=== PATIENT | female | born 1965 | race Caucasian/White ===

== ENCOUNTER 2017-03-11 07:46 | Day surgery (SDC) | payer OTHER ==
[~2017-03-11] VITALS: Ht 161.3 cm; Wt 55.3 kg
[~2017-03-11 07:46] MED LIST: ALEV220T26 PO; LATA5OPD OU
[2017-03-11] MEDS ORDERED: LR 500 ML IV ONE (08:00)
[2017-03-11] MEDS ORDERED: CIPRODEX OTIC SUSP 7.5ML As Ordered ONE (09:07)
[2017-03-11] MEDS ORDERED: EPINEPHrine 1MG/ML INJ 30ML MD-VIAL As Ordered ONE (09:07)
[2017-03-11] MEDS ORDERED: LIDOCAINE W/EPINEPHRINE 1% 20ML VIAL As Ordered ONE (09:07)
[2017-03-11] MEDS ORDERED: MIDAZOLAM INJ 2 MG/2 ML VIAL (J2250) As Ordered ONE (09:51)
[2017-03-11] MEDS ORDERED: PROPOFOL 200 MG/20 ML VIAL As Ordered ONE ×2 (09:51→09:53)
[2017-03-11] MEDS ORDERED: fentaNYL 100 MCG/2 ML INJECTION (J3010) As Ordered ONE ×2 (09:51→09:53)
[2017-03-11] MEDS ORDERED: ROCURONIUM BROMIDE 50 MG/5 ML VIAL/SYRINGE As Ordered ONE (09:53)
[2017-03-11] MEDS ORDERED: LIDOCAINE 2% INJ 100 MG/5 ML SDV (FOR ANES.) As Ordered ONE (09:53)
[2017-03-11] MEDS ORDERED: METOCLOPRAMIDE INJ 10MG/2ML VIAL (J2765) As Ordered ONE (09:53)
[2017-03-11] MEDS ORDERED: ONDANSETRON 4MG/2ML VIAL (J2405) As Ordered ONE (09:53)
[2017-03-11] MEDS ORDERED: SUCCINYLCHOLINE 100 MG/5 ML SYRINGE (J0330) As Ordered ONE (09:53)
[2017-03-11] MEDS ORDERED: dexameTHASONE 4 MG/ML 1ML VIAL (J1100) As Ordered ONE (10:01)
[2017-03-11] MEDS ORDERED: ACETAMINOPH W/CODEINE #3 TAB UD PO PRN (11:00)
[2017-03-11] MEDS ORDERED: LR 1,000 ML IV SCH ×2 (11:00)
[2017-03-11] MEDS ORDERED: fentaNYL 100 MCG/2 ML INJECTION (J3010) IV PRN (11:00)
[2017-03-11] MEDS ORDERED: ONDANSETRON 4MG/2ML VIAL (J2405) IV PRN (11:00)
--- NOTE | 2017-03-11 11:48 | RO ---
DATE OF PROCEDURE: 03/11/2017 PREPROCEDURE DIAGNOSIS: Chronic left tympanic membrane perforation. POSTPROCEDURE DIAGNOSIS: Chronic left tympanic membrane perforation, possible cholesteatoma. OPERATIVE PROCEDURE: Exploration of left ear. SURGEON: Michael Bloom MD HAND STONER: ANESTHESIA: General. DESCRIPTION OF PROCEDURE: Under general anesthesia, the patient is prepped and draped in the usual manner. The area was infiltrated with Lidocaine and epinephrine. I cleaned the ear with Betadine and saline. I made a posterior tympanotomy incision and radial incision. Postauricular incision was made. I then joined the posterior and anterior dissection. Once I did this, I examined the ear. It was apparent the patient had a large posterosuperior retraction pocket and probable cholesteatoma. Because I had not discussed mastoidectomy with the patient, I elected to terminate the procedure. The patient tolerated the procedure well. I put some Oxipor dressing and then closed the wound with #3-0 chromic and #3-0 Prolene. The patient will go to the recovery room and then we will discuss options with her afterwards.
[2017-03-11 12:40] VITALS: BP 129/65
== END 2017-03-11 13:00 | disposition home or self-care (01) ==
LOC: M SDC 07:46
PROVIDERS: ATTEND Otolaryngology
DX: H72.92 Unspecified perforation of tympanic membrane, left ear (principal); H40.9 Unspecified glaucoma; R23.3 Spontaneous ecchymoses; R56.9 Unspecified convulsions; Z88.8 Allergy status to other drugs, medicaments and biological substances; Z79.899 Other long term (current) drug therapy; Z90.710 Acquired absence of both cervix and uterus; Z98.51 Tubal ligation status; Z72.0 Tobacco use

== ENCOUNTER → 2017-04-13 | Outpatient (CLI) | payer OTHER ==
--- NOTE | 2017-04-13 21:11 | ECGEPIP ---
Stationary ECG Study [facility] Test Date: 2017-04-13 Pat Name: ALVARADO SIERRA Department: Room: - Gender: F Director Of Video Analytics: [facility] : 1965 Requested By: Timothy Gerard Order Number: [id number] Reading MD: Keshawn Mckeon Measurements Intervals Raymond Rate: 81 P: 74 GA: 148 QRS: 47 QRSD: 77 T: 46 QT: 355 QTc: 414 Interpretive Statements Normal sinus rhythm Left atrial enlargement Delayed anterior R wave progression Nonspecific T wave abnormality Comparison tracing not on file Electronically Signed On 04-13-2017 21:11:31 EST by Keshawn Mckeon
== END ==
LOC: M EKG 09:28
PROVIDERS: ATTEND Anesthesiology
DX: Z01.818 Encounter for other preprocedural examination (principal); H40.9 Unspecified glaucoma; R94.31 Abnormal electrocardiogram [ECG] [EKG]

== ENCOUNTER 2017-04-20 05:55 | Day surgery (SDC) | payer OTHER ==
[~2017-04-20] VITALS: Ht 160 cm; Wt 55.8 kg
[2017-04-20] MEDS ORDERED: LIDOCAINE 1% MDV 20ML VIAL SQ PRN (06:00)
[2017-04-20] MEDS ORDERED: LIDOCAINE 2% INJ 100 MG/5 ML SDV (FOR ANES.) As Ordered ONE (07:07)
[2017-04-20] MEDS ORDERED: MIDAZOLAM INJ 2 MG/2 ML VIAL (J2250) As Ordered ONE (07:07)
[2017-04-20] MEDS ORDERED: ROCURONIUM BROMIDE 50 MG/5 ML VIAL As Ordered ONE (07:07)
[2017-04-20] MEDS ORDERED: PROPOFOL 200 MG/20 ML VIAL As Ordered ONE (07:07)
[2017-04-20] MEDS ORDERED: ONDANSETRON 4MG/2ML VIAL (J2405) As Ordered ONE (07:07)
[2017-04-20] MEDS ORDERED: METOCLOPRAMIDE INJ 10MG/2ML VIAL (J2765) As Ordered ONE (07:07)
[2017-04-20] MEDS ORDERED: fentaNYL 100 MCG/2 ML INJECTION (J3010) As Ordered ONE ×2 (07:08→09:37)
[2017-04-20] MEDS ORDERED: EPINEPHrine 1MG/ML INJ 30ML MD-VIAL As Ordered ONE (07:18)
[2017-04-20] MEDS ORDERED: CIPROFLOXACIN HC OTIC SUSPENSION As Ordered ONE (07:18)
[2017-04-20] MEDS ORDERED: LIDOCAINE W/EPINEPHRINE 1% 20ML VIAL As Ordered ONE (07:18)
[2017-04-20] MEDS ORDERED: SCOPOLAMINE 1.5 MG TRANSDERMAL As Ordered ONE (07:24)
[2017-04-20] MEDS ORDERED: SCOPOLAMINE 1.5 MG TRANSDERMAL TOP ONE (07:45)
[2017-04-20] MEDS ORDERED: dexameTHASONE 4 MG/ML 1ML VIAL (J1100) As Ordered ONE (07:52)
[2017-04-20] MEDS ORDERED: KETOROLAC 60 MG/2 ML VIAL (J1885) As Ordered ONE (10:51)
[2017-04-20] MEDS ORDERED: fentaNYL 100 MCG/2 ML INJECTION (J3010) IV PRN (11:30)
[2017-04-20] MEDS ORDERED: ACETAMINOPH W/CODEINE #3 TAB UD PO PRN (11:30)
[2017-04-20] MEDS ORDERED: ONDANSETRON 4MG/2ML VIAL (J2405) IV PRN (11:30)
[2017-04-20] MEDS ORDERED: LR 1,000 ML IV SCH ×2 (11:30)
[2017-04-20] MEDS ORDERED: PERCOCET 5MG/325MG TAB PO PRN (11:30)
--- NOTE | 2017-04-20 11:43 | RO ---
DATE OF PROCEDURE: 04/20/2017 PREPROCEDURE DIAGNOSIS: Chronic left otitis media with cholesteatoma. POSTPROCEDURE DIAGNOSIS: Chronic left otitis media with cholesteatoma. PROCEDURE: Left modified radical mastoidectomy with tympanoplasty. The patient was monitored during the procedure using the NIM monitor. SURGEON: Dr. Michael Bloom. DIGITAL CONTENT COORDINATOR: ANESTHESIA: General. DESCRIPTION OF PROCEDURE: Under general anesthesia with the patient intubated, the patient was draped in the usual manner. The wound was prepped and draped in the usual manner. The electrodes had been hooked up prior to the procedure. Then I cleaned the ear with Betadine and saline. I infiltrated the ear with lidocaine with epinephrine. I made a posterior tenotomy incision and radial incisions laterally. Findings at the procedure where there was a cholesteatoma sac in the anterior aspect of the mastoid cavity superiorly. There was marked retraction of the tympanic membrane in the drum lying on top of the horizontal segment of the facial nerve as well as the oval window. There was shortening of the incus along the process. In addition in the area of the incus, it was firmly adherent to superiorly and laterally almost closing off the approach into the epitympanum. A post auricular incision was made. The flap elevated and periostia evaluated. The postauricular and neural dissections were joined. I then drilled down to the mastoid. The mastoid was quite sclerotic. The above findings were seen. I removed the cholesteatoma and then I drilled down the posterior wall because of the marked collapse of the tympanic membrane. Once this was done, then I did remove the incus. I removed a portion of the drum as well. Once this was done then everything looked good. I did pick out epithelium from the oval window and some off of the base of the nerve but I did not totally remove all of the epithelium. The posterior canal wall was drilled down. The facial nerve was identified but not injured. The patient facial nerve stimulator was used during the procedure. I then harvested the temporalis fascia graft. I put a piece of Silastic in the middle ear space and then I put some Gelfoam on top of that. I laid the graft on top of that and returned the drum to its original position. I then did a meatoplasty removing some cartilage in the posterior part of the canal and sutured the canal posteriorly. Iodoform gauze was placed in the mastoid cavity and then I closed the postauricular incision with #3-0 chromic and #3-0 Prolene. The patient tolerated the procedure well. Minimal blood loss. The patient was extubated and transferred to the recovery room in excellent condition. A mastoid dressing was applied at the end of the procedure.
[2017-04-20 14:00] VITALS: BP 139/65
== END 2017-04-20 14:13 | disposition home or self-care (01) ==
LOC: M SDC 05:55
PROVIDERS: ATTEND Otolaryngology
DX: H65.22 Chronic serous otitis media, left ear (principal); H71.92 Unspecified cholesteatoma, left ear; H72.92 Unspecified perforation of tympanic membrane, left ear; H40.9 Unspecified glaucoma; R23.3 Spontaneous ecchymoses; R56.9 Unspecified convulsions; J30.9 Allergic rhinitis, unspecified; Z88.8 Allergy status to other drugs, medicaments and biological substances; Z72.0 Tobacco use; Z90.710 Acquired absence of both cervix and uterus; Z98.51 Tubal ligation status

== ENCOUNTER → 2017-06-17 | Outpatient (CLI) | payer OTHER | LOC: M RAD 10:51 | DX: N63.22 Unspecified lump in the left breast, upper inner quadrant (principal); Z12.31 Encounter for screening mammogram for malignant neoplasm of breast | CPT/HCPCS: 77066 ==

== ENCOUNTER 2019-01-17 09:05 | Day surgery (SDC) | payer OTHER ==
[~2019-01-17] VITALS: Ht 160 cm; Wt 53.1 kg
[~2019-01-17 09:05] MED LIST changes: +BIMA01SOL OU; +LATA0.0013 OU; -LATA5OPD OU; +LR 1,000 ML IV ONE; +XALA0.007 OU
[2019-01-17] MEDS ORDERED: ROCURONIUM BROMIDE 50 MG/5 ML VIAL As Ordered ONE (10:17)
[2019-01-17] MEDS ORDERED: LIDOCAINE 2% INJ 100 MG/5 ML SDV (FOR ANES.) As Ordered ONE (10:17)
[2019-01-17] MEDS ORDERED: PROPOFOL 200 MG/20 ML VIAL As Ordered ONE (10:17)
[2019-01-17] MEDS ORDERED: dexameTHASONE 4 MG/ML 1ML VIAL (J1100) As Ordered ONE (10:17)
[2019-01-17] MEDS ORDERED: ONDANSETRON 4MG/2ML VIAL (J2405) As Ordered ONE (10:17)
[2019-01-17] MEDS ORDERED: SUGAMMADEX SODIUM 500 MG/5 ML VIAL (BRIDION) As Ordered ONE ×2 (10:25→12:23)
[2019-01-17] MEDS ORDERED: SCOPOLAMINE 1MG TRANSDERMAL PATCH TOP ONE (11:00)
[2019-01-17] MEDS ORDERED: SCOPOLAMINE 1MG TRANSDERMAL PATCH As Ordered ONE (11:07)
[2019-01-17] MEDS ORDERED: MIDAZOLAM INJ 2 MG/2 ML VIAL (J2250) As Ordered ONE (11:11)
[2019-01-17] MEDS ORDERED: fentaNYL 250 MCG/5 ML INJECTION (J3010) As Ordered ONE (11:11)
[2019-01-17] MEDS ORDERED: LIDOCAINE W/EPINEPHRINE 1% 20ML VIAL As Ordered ONE (11:23)
[2019-01-17] MEDS ORDERED: METHYLENE BLUE 0.5% (5MG/ML) 10 ML AMP (PROVAYBLUE)(Q9968 PER 1MG) As Ordered ONE (11:23)
[2019-01-17] MEDS ORDERED: CIPRODEX OTIC SUSP 7.5ML As Ordered ONE (11:23)
[2019-01-17] MEDS ORDERED: EPINEPHrine 1MG/ML INJ 30ML MD-VIAL As Ordered ONE (11:23)
[2019-01-17] MEDS ORDERED: ACETAMINOPHEN 1000MG 100ML IV BTL (OFIRMEV) (J0131 PER 10MG) As Ordered ONE (11:53)
[2019-01-17] MEDS ORDERED: ACETAMINOPH W/CODEINE #3 TAB UD PO PRN (13:15)
[2019-01-17] MEDS ORDERED: LR 1,000 ML IV SCH ×2 (13:15)
[2019-01-17] MEDS ORDERED: ONDANSETRON 4MG/2ML VIAL (J2405) IV PRN (13:15)
[2019-01-17] MEDS ORDERED: fentaNYL 100 MCG/2 ML INJECTION (J3010) IV PRN (13:15)
[2019-01-17 13:38] VITALS: BP 121/59
--- NOTE | 2019-01-18 20:37 | RO ---
DATE OF PROCEDURE: 01/17/2019 PREPROCEDURE DIAGNOSIS: Left conductive hearing loss. POSTPROCEDURE DIAGNOSIS: Left conductive hearing loss. PROCEDURE: Left tympanotomy, possible ossicular reconstruction. SURGEON: Michael Bloom MD STONE SETTER METAL OPTICAL FRAMES: ANESTHESIA: FINDINGS/DESCRIPTION OF PROCEDURE: There was a bit of keratin superiorly over the superior aspect of the facial ridge. I was able to suction this. When I did this then, I found that it was attached to the piece of Silastic that was put in the middle ear space. When I removed it then, the drum had been collapsed down. So, I cleaned the area out, cleaned the mastoid out, and everything looked good afterwards. I thought it was best to just leave it as a radical mastoid cavity then and not do an ossicular reconstruction. The patient tolerated the procedure well. No blood loss. The patient was extubated and transferred to the recovery room in excellent condition.
== END 2019-01-17 14:23 | disposition home or self-care (01) ==
LOC: M SDC 09:05
PROVIDERS: ATTEND Otolaryngology
DX: H90.12 Conductive hearing loss, unilateral, left ear, with unrestricted hearing on the contralateral side (principal); H40.9 Unspecified glaucoma; F41.9 Anxiety disorder, unspecified; R06.83 Snoring; Z88.8 Allergy status to other drugs, medicaments and biological substances; Z90.710 Acquired absence of both cervix and uterus; Z98.51 Tubal ligation status; Z72.0 Tobacco use
CPT/HCPCS: 69222; J0131; J1100; J2250; J2405; J3010; Q9968

== ENCOUNTER → 2021-04-17 | Outpatient (CLI) | payer OTHER ==
[~2021-04-17] MED LIST changes: -LR 1,000 ML IV ONE
[2021-04-17 11:09] LABS: APPEARANCE, URINE HAZY (CLEAR); BACTERIA, URINE AUTO NEGATIVE (NEGATIVE); BILIRUBIN, URINE AUTO NEGATIVE (NEGATIVE); BLOOD, URINE BLOOD 3+ (NEGATIVE); COLOR, URINE AMBER (YELLOW); GLUCOSE, URINE (UA) AUTO NEGATIVE (NEGATIVE); KETONE, URINE AUTO NEGATIVE (NEGATIVE); LEUKOCYTE ESTERASE, URINE AUTO NEGATIVE (NEGATIVE); MUCUS, URINE SMALL (NEGATIVE); NITRITE, URINE AUTO NEGATIVE (NEGATIVE); PROTEIN, URINE AUTO 2+ mg/dL (NEGATIVE); RBC, URINE AUTO 18 /HPF (0-3); SPECIFIC GRAVITY URINE AUTO 1.019 (1.002-1.035); SQUAMOUS EPITHELIAL CELL UR AU 0 /HPF (0-6); WBC, URINE AUTO 5 /HPF (0-3)
== END ==
LOC: M PLALAB 08:42
PROVIDERS: ATTEND Obstetrics & Gynecology
DX: R31.0 Gross hematuria (principal)

== ENCOUNTER → 2021-05-01 | Outpatient (CLI) | payer OTHER ==
--- NOTE | 2021-05-01 14:12 | REP ---
INDICATION: JENSEN SCR MAMMO. COMPARISON: Multiple prior screening examinations, the most recent, 06/17/2017 TECHNIQUE: Digital screening (2D) mammography was performed bilaterally in the CC and MLO projections. Additionally, breast tomosynthesis (3D mammography) was performed bilaterally in the CC and MLO projections. FINDINGS: By history, the patient has no complaints of a palpable breast abnormality or other significant breast complaints. The Volpara volumetric breast density pattern is C, the breasts are heterogeneously dense, which may obscure small masses. There are multiple circumscribed isodense masses in both breasts, most likely cysts, but further evaluation is warranted. IMPRESSION: BIRADS/ACR : Category 0: Incomplete, need additional imaging evaluation. This patient's Tyrer-Cuzick lifetime breast cancer risk assessment score is 7.3%. This mammogram was interpreted with the aid of an FDA-approved computer-aided detection system. Because of the patient's breast density, screening MRI/whole breast ultrasound is warranted. The patient states she had a clinical breast exam in April 2021. The patient letter being requested is M0. RECOMMENDATION: Bilateral whole breast ultrasound. <Electronically signed by Klever Davalos > 05/01/21 [id number]
== END ==
LOC: M WHC 12:37
PROVIDERS: ATTEND Nurse Practitioner Women's Health
DX: Z12.31 Encounter for screening mammogram for malignant neoplasm of breast (principal)

== ENCOUNTER → 2021-05-08 | Outpatient (CLI) | payer OTHER ==
--- NOTE | 2021-05-09 17:35 | REP ---
INDICATION: Dense breasts COMPARISON: Bilateral screening mammogram, 05/01/2021. TECHNIQUE: Bilateral whole breast ultrasound was performed. FINDINGS: Right breast: Multiple cysts of varying sizes were noted throughout the right breast. The largest cyst is at 7 o'clock measuring 9 x 5 x 5 mm. There are multiple dilated retroareolar lactiferous ducts. Left breast: Multiple cysts of varying sizes were noted throughout the left breast. The largest is at 3 o'clock measuring 7 x 6 x 5 mm. In the retroareolar area of the left breast there is a 13 x 9 x 4 mm oval, circumscribed, parallel, hypoechoic nodule with no posterior features. IMPRESSION: Probably benign complicated cyst in the right breast and probably benign circumscribed mass in the left breast. BI-RADS: Category 3: Probably benign. RECOMMENDATION: Follow-up bilateral breast ultrasound in 6 months. <Electronically signed by Klever Davalos > 05/09/21 [id number]
== END ==
LOC: M WHC 12:55
PROVIDERS: ATTEND Nurse Practitioner Women's Health
DX: R92.2 Inconclusive mammogram (principal)

== ENCOUNTER → 2021-09-05 | Outpatient (CLI) | payer OTHER | LOC: M RAD 10:48 | PROVIDERS: ATTEND Student in an Organized Health Care Education/Training Program | DX: Z87.891 Personal history of nicotine dependence (principal) ==

== ENCOUNTER → 2021-10-09 | Outpatient (REF) | payer OTHER ==
[~2021-10-09] MED LIST changes: +FISH1000 PO; +FLUT15.820 NARES; +LORA-243 PO
== END ==
LOC: M SFHCLERA 11:37
PROVIDERS: ATTEND Student in an Organized Health Care Education/Training Program
DX: R68.89 Other general symptoms and signs (principal)

== ENCOUNTER → 2021-10-14 | Outpatient (CLI) | payer OTHER ==
[~2021-10-14] MED LIST changes: +ACETAMINOPHEN 325 MG TAB As Ordered ONE; +B-12100010 PO; +DORZ2SOL5 OU; +HOME MED LIST COMPLETE! XX SCH; +LATA0.0015 OU; +LIDOCAINE 1% MDV 20ML VIAL As Ordered ONE; +VITA100093 PO; +VITA500C24 PO
[2021-10-14 11:59] VITALS: BP 156/72
== END ==
LOC: M IRPRO 08:15
PROVIDERS: ATTEND Internal Medicine Pulmonary Disease
DX: R91.1 Solitary pulmonary nodule (principal)

== ENCOUNTER → 2021-11-08 | Outpatient (CLI) | payer OTHER ==
[~2021-11-08] MED LIST changes: -ACETAMINOPHEN 325 MG TAB As Ordered ONE; -HOME MED LIST COMPLETE! XX SCH; +INLY5TAB PO; -LIDOCAINE 1% MDV 20ML VIAL As Ordered ONE
== END ==
LOC: M WHC 12:45
PROVIDERS: ATTEND Student in an Organized Health Care Education/Training Program
DX: R92.8 Other abnormal and inconclusive findings on diagnostic imaging of breast (principal); N60.02 Solitary cyst of left breast

== ENCOUNTER → 2021-11-14 | Outpatient (CLI) | payer OTHER | LOC: M LABSMTC 10:47 | PROVIDERS: ATTEND Anesthesiology | DX: Z01.818 Encounter for other preprocedural examination (principal); Z11.52 Encounter for screening for COVID-19 ==

== ENCOUNTER → 2021-11-22 | Outpatient (CLI) | payer OTHER ==
[~2021-11-22] MED LIST changes: +PROHANCE 279.3MG/ML 15ML VIAL As Ordered ONE
== END ==
LOC: M RAD 12:22
PROVIDERS: ATTEND Internal Medicine Medical Oncology
DX: N60.11 Diffuse cystic mastopathy of right breast (principal); N60.12 Diffuse cystic mastopathy of left breast
CPT/HCPCS: 77049; A9576

== ENCOUNTER → 2021-12-03 | Outpatient (POV) | payer OTHER ==
[~2021-12-03] VITALS: Ht 160 cm; Wt 55.4 kg
[~2021-12-03] MED LIST changes: -PROHANCE 279.3MG/ML 15ML VIAL As Ordered ONE
[2021-12-03 08:30] VITALS: BP 177/80
== END ==
LOC: M IRPOV 08:26
PROVIDERS: ATTEND Radiology Diagnostic Radiology
DX: Z45.2 Encounter for adjustment and management of vascular access device (principal)

== ENCOUNTER → 2022-01-29 | Outpatient (CLI) | payer OTHER ==
[~2022-01-29] MED LIST changes: +AMLO1TAB25; +CHLO25TA PO; +K-TA10TA2 PO; +PROHANCE 279.3MG/ML 15ML VIAL ONE
== END ==
LOC: M PLAIMG 13:20
PROVIDERS: ATTEND Internal Medicine Medical Oncology
DX: R90.89 Other abnormal findings on diagnostic imaging of central nervous system (principal); R42 Dizziness and giddiness; R51.9 Headache, unspecified; C64.9 Malignant neoplasm of unspecified kidney, except renal pelvis; C34.90 Malignant neoplasm of unspecified part of unspecified bronchus or lung
CPT/HCPCS: 70553; A9576

== ENCOUNTER → 2022-02-11 | Outpatient (CLI) | payer OTHER ==
[~2022-02-11] MED LIST changes: +LOSA50TA28 PO; -PROHANCE 279.3MG/ML 15ML VIAL ONE
== END ==
LOC: M ONCR 13:17
PROVIDERS: ATTEND General Practice
DX: C64.1 Malignant neoplasm of right kidney, except renal pelvis (principal); C34.91 Malignant neoplasm of unspecified part of right bronchus or lung; F17.210 Nicotine dependence, cigarettes, uncomplicated; G93.9 Disorder of brain, unspecified; H40.9 Unspecified glaucoma; H91.90 Unspecified hearing loss, unspecified ear; Z80.1 Family history of malignant neoplasm of trachea, bronchus and lung; Z88.8 Allergy status to other drugs, medicaments and biological substances; Z79.899 Other long term (current) drug therapy; Z90.710 Acquired absence of both cervix and uterus
CPT/HCPCS: 88173; G0463

== ENCOUNTER → 2022-03-31 | Outpatient (CLI) | payer OTHER ==
[~2022-03-31] MED LIST changes: +GASTROGRAFIN SOLUTION 30ML (Q9963) As Ordered ONE; +ISOVUE-370 76% 100ML VIAL As Ordered ONE; +OFLO3OPSO OS; +POLY2.5S OS; +PROC10TA5 PO
== END ==
LOC: M RAD 09:32
PROVIDERS: ATTEND Internal Medicine Medical Oncology
DX: C64.1 Malignant neoplasm of right kidney, except renal pelvis (principal)
CPT/HCPCS: 71260; 74177; Q9963; Q9967

== ENCOUNTER → 2022-07-07 | Outpatient (CLI) | payer OTHER ==
[~2022-07-07] MED LIST changes: +ERYT5OIN25; +FLUO1OPD; -GASTROGRAFIN SOLUTION 30ML (Q9963) As Ordered ONE; -ISOVUE-370 76% 100ML VIAL As Ordered ONE; +LORA1TAB4 PO; +OFLO3OPSO; +PREDOPD; +VALA1TAB5 PO; +VANC50SOL; +[UNRECOGNIZED DRUG - CODE]; +[UNRECOGNIZED DRUG - CODE]
== END ==
LOC: M WHC 12:24
PROVIDERS: ATTEND Surgery
DX: R92.8 Other abnormal and inconclusive findings on diagnostic imaging of breast (principal)

== ENCOUNTER → 2022-07-23 | Outpatient (CLI) | payer OTHER ==
[~2022-07-23] MED LIST changes: +DORZ1SOL4; +GASTROGRAFIN SOLUTION 30ML As Ordered ONE; +LIDO1CRE42 TOP; +TAFL1DRO2
== END ==
LOC: M RAD 07:29
PROVIDERS: ATTEND Internal Medicine Hematology & Oncology
DX: C64.9 Malignant neoplasm of unspecified kidney, except renal pelvis (principal)

== ENCOUNTER → 2022-07-23 | Outpatient (CLI) | payer OTHER ==
[~2022-07-23] MED LIST changes: -GASTROGRAFIN SOLUTION 30ML As Ordered ONE; +ISOVUE-370 76% 100ML VIAL As Ordered ONE
== END ==
LOC: M RAD 07:30
PROVIDERS: ATTEND General Practice
DX: D42.0 Neoplasm of uncertain behavior of cerebral meninges (principal)

== ENCOUNTER → 2022-08-14 | Outpatient (CLI) | payer OTHER ==
[~2022-08-14] MED LIST changes: -ISOVUE-370 76% 100ML VIAL As Ordered ONE
== END ==
LOC: M ONCR 09:53
PROVIDERS: ATTEND General Practice
DX: C64.1 Malignant neoplasm of right kidney, except renal pelvis (principal); F17.218 Nicotine dependence, cigarettes, with other nicotine-induced disorders; G93.9 Disorder of brain, unspecified; M84.851 Other disorders of continuity of bone, right pelvic region and thigh; Z79.51 Long term (current) use of inhaled steroids; Z79.620 Long term (current) use of immunosuppressive biologic; Z79.899 Other long term (current) drug therapy; Z88.8 Allergy status to other drugs, medicaments and biological substances

== ENCOUNTER → 2022-10-06 | Outpatient (CLI) | payer OTHER ==
[~2022-10-06] MED LIST changes: +CITRTAB18 PO; +LORA1TAB23 PO; -LORA1TAB4 PO; -OFLO3OPSO; -OFLO3OPSO OS; +OFLO5DRO; +OFLO5DRO OS; +XIID5DRO
== END ==
LOC: M PLARAD 10:13
PROVIDERS: ATTEND Internal Medicine Medical Oncology
DX: C64.1 Malignant neoplasm of right kidney, except renal pelvis (principal); C34.81 Malignant neoplasm of overlapping sites of right bronchus and lung

== ENCOUNTER → 2022-12-16 | Outpatient (CLI) | payer OTHER ==
[~2022-12-16] MED LIST changes: -AMLO1TAB25; +AMLO1TAB25 PO; -ERYT5OIN25; +ERYT5OIN25 OU; +GASTROGRAFIN SOLUTION 30ML As Ordered ONE; +ISOVUE-370 76% 100ML VIAL As Ordered ONE; -K-TA10TA2 PO; -LIDO1CRE42 TOP; +LIDO30CR18 TOP; +POTA-165 PO
== END ==
LOC: M RAD 14:14
PROVIDERS: ATTEND Internal Medicine Medical Oncology
DX: C64.9 Malignant neoplasm of unspecified kidney, except renal pelvis (principal)
CPT/HCPCS: 71260; 74177; Q9963; Q9967

== ENCOUNTER → 2023-04-06 | Outpatient (CLI) | payer OTHER ==
[~2023-04-06] MED LIST changes: +AZIT-12 PO; +CABO40TA PO; +CABO60TA PO; +CLOB5CR; +FAMO20TA PO; +NICO1DIS12 TOP; +PRED10TA2 PO; +PREDOPD OS; +REST0.05 OU
== END ==
LOC: M RAD 11:01
PROVIDERS: ATTEND Internal Medicine Medical Oncology
DX: C64.9 Malignant neoplasm of unspecified kidney, except renal pelvis (principal)
CPT/HCPCS: 71260; 74177; Q9963; Q9967

== ENCOUNTER → 2023-07-08 | Outpatient (CLI) | payer OTHER ==
[~2023-07-08] MED LIST changes: +ELIQ5TAB PO; +POTA-150 PO
== END ==
LOC: M RAD 11:21
PROVIDERS: ATTEND Internal Medicine Medical Oncology
DX: C64.9 Malignant neoplasm of unspecified kidney, except renal pelvis (principal)
CPT/HCPCS: 71260; 74177; Q9963; Q9967

== ENCOUNTER → 2023-07-10 | Outpatient (CLI) | payer OTHER ==
[~2023-07-10] MED LIST changes: -GASTROGRAFIN SOLUTION 30ML As Ordered ONE; -ISOVUE-370 76% 100ML VIAL As Ordered ONE
== END ==
LOC: M WHC 09:53
PROVIDERS: ATTEND Physician Assistant
DX: Z12.31 Encounter for screening mammogram for malignant neoplasm of breast (principal)

== ENCOUNTER → 2023-10-01 | Outpatient (CLI) | payer OTHER ==
[~2023-10-01] MED LIST changes: +GASTROGRAFIN SOLUTION 30ML As Ordered ONE; +ISOVUE-370 76% 100ML VIAL As Ordered ONE; +POTA-136 PO
== END ==
LOC: M RAD 11:29
PROVIDERS: ATTEND Internal Medicine Medical Oncology
DX: C64.9 Malignant neoplasm of unspecified kidney, except renal pelvis (principal)
CPT/HCPCS: 71260; 74177; Q9963; Q9967

== ENCOUNTER → 2024-01-04 | Outpatient (CLI) | payer OTHER ==
[~2024-01-04] MED LIST changes: +PRED20TA PO; +TRIA1CR80 TOP
== END ==
LOC: M RAD 15:06
PROVIDERS: ATTEND Internal Medicine Medical Oncology
DX: C64.1 Malignant neoplasm of right kidney, except renal pelvis (principal); N28.89 Other specified disorders of kidney and ureter; K57.30 Diverticulosis of large intestine without perforation or abscess without bleeding
CPT/HCPCS: 71260; 74177; Q9963; Q9967

== ENCOUNTER → 2024-04-01 | Outpatient (CLI) | payer OTHER | LOC: M RAD 08:58 | PROVIDERS: ATTEND Internal Medicine Medical Oncology | DX: C64.9 Malignant neoplasm of unspecified kidney, except renal pelvis (principal); N28.1 Cyst of kidney, acquired | CPT/HCPCS: 71260; 74177; Q9963; Q9967 ==

== ENCOUNTER → 2024-07-05 | Outpatient (REF) | payer OTHER ==
[~2024-07-05] MED LIST changes: -GASTROGRAFIN SOLUTION 30ML As Ordered ONE; -ISOVUE-370 76% 100ML VIAL As Ordered ONE; +METO1TAB7
[2024-07-05 17:39] LABS: CHOLESTEROL RISK RATIO 4.09 (<5); HDL CHOLESTEROL 45.4 MG/DL (>40); LDL CHOLESTEROL 117.6 MG/DL (<100); NON-HDL-C 140.6 MG/DL
[2024-07-05 17:42] LABS: THYROID STIMULATING HORMONE 12.251 uIU/ML (0.55-4.78)
[2024-07-05 18:22] LABS: HEMOGLOBIN A1c 5.4 % (4.0-6.0)
[2024-07-07 10:22] LABS: FREE T4 1.04 NG/DL (0.89-1.76)
== END ==
LOC: M SFHCLERA 09:04
DX: I10 Essential (primary) hypertension (principal)

== ENCOUNTER → 2024-08-09 | Outpatient (CLI) | payer OTHER ==
[~2024-08-09] MED LIST changes: +ISOVUE-370 76% 100ML VIAL ONE; +LEVO50TA5 PO
== END ==
LOC: M PLAIMG 10:43
PROVIDERS: ATTEND Nurse Practitioner Women's Health
DX: C64.1 Malignant neoplasm of right kidney, except renal pelvis (principal)

== ENCOUNTER → 2024-08-22 | Outpatient (CLI) | payer OTHER ==
[~2024-08-22] MED LIST changes: -ISOVUE-370 76% 100ML VIAL ONE; +LOSA100T46; +ZADI1DRO OP
[2024-08-22 10:08] VITALS: TEMP 97
[2024-08-22 11:07] LABS: PH BODY FLUID 7.451 UNITS (NOT ESTABLISHED); SOURCE, BODY FLUID pH PLEURAL
[2024-08-22 11:10] LABS: PLEURAL FL COLOR RED (COLORLESS); SOURCE, BODY FLUID PLEURAL
[2024-08-22 11:11] LABS: APPEARANCE, BODY FLUID TURBID (CLEAR)
[2024-08-22 11:43] LABS: SOURCE, BODY FLUID GLUCOSE PLEURAL
[2024-08-22 11:45] LABS: LDH, BODY FLUID 379 U/L (NOT ESTABLISHED); SOURCE, BODY FLUID LDH PLEURAL
[2024-08-22 12:01] LABS: SOURCE, BODY FLUID TOT PROTEIN PLEURAL; TOTAL PROTEIN, BODY FLUID 4.5 G/DL (NOT ESTABLISHED)
[2024-08-22 12:30] VITALS: BP 101/56; O2SAT 96
[2024-08-22] MEDS: ACETAMINOPHEN 325 MG TAB PO ONE (12:35)
== END ==
LOC: M IRPRO 09:52
PROVIDERS: ATTEND Internal Medicine Medical Oncology
DX: J90 Pleural effusion, not elsewhere classified (principal); C64.9 Malignant neoplasm of unspecified kidney, except renal pelvis

== ENCOUNTER → 2024-09-05 | Outpatient (CLI) | payer OTHER | LOC: M RAD 11:18 | PROVIDERS: ATTEND Internal Medicine Medical Oncology | DX: C64.9 Malignant neoplasm of unspecified kidney, except renal pelvis (principal); J90 Pleural effusion, not elsewhere classified ==

== ENCOUNTER → 2024-09-26 | Outpatient (CLI) | payer MEDICAID, OTHER ==
[~2024-09-26] MED LIST changes: +LIFI1DRO4; -XIID5DRO
== END ==
LOC: M RAD 10:54
PROVIDERS: ATTEND Internal Medicine Medical Oncology
DX: C64.9 Malignant neoplasm of unspecified kidney, except renal pelvis (principal); J98.4 Other disorders of lung; Z95.828 Presence of other vascular implants and grafts

== ENCOUNTER → 2025-02-07 | Outpatient (CLI) | payer MEDICARE ==
[~2025-02-07] MED LIST changes: +ISOVUE-370 76% 100 ML VIAL As Ordered ONE
== END ==
LOC: M RAD 10:01
PROVIDERS: ATTEND Internal Medicine Medical Oncology
DX: C64.9 Malignant neoplasm of unspecified kidney, except renal pelvis (principal); C78.00 Secondary malignant neoplasm of unspecified lung; J47.9 Bronchiectasis, uncomplicated; J98.11 Atelectasis; R91.8 Other nonspecific abnormal finding of lung field; J90 Pleural effusion, not elsewhere classified
CPT/HCPCS: 71260; 74177; Q9967

== ENCOUNTER → 2025-03-08 | Outpatient (REF) | payer MEDICARE, OTHER ==
[~2025-03-08] MED LIST changes: -ISOVUE-370 76% 100 ML VIAL As Ordered ONE; +LEVO75TA4
[2025-03-08 15:15] LABS: APPEARANCE, URINE CLEAR (CLEAR); BACTERIA, URINE AUTO NEGATIVE (NEGATIVE); BILIRUBIN, URINE AUTO NEGATIVE (NEGATIVE); BLOOD, URINE BLOOD NEGATIVE (NEGATIVE); GLUCOSE, URINE (UA) AUTO NEGATIVE (NEGATIVE); KETONE, URINE AUTO NEGATIVE (NEGATIVE); LEUKOCYTE ESTERASE, URINE AUTO NEGATIVE (NEGATIVE); NITRITE, URINE AUTO NEGATIVE (NEGATIVE); PROTEIN, URINE AUTO NEGATIVE (NEGATIVE); RBC, URINE AUTO 0 /HPF (0-3); SPECIFIC GRAVITY URINE AUTO 1.009 (1.002-1.035); SQUAMOUS EPITHELIAL CELL UR AU 1 /HPF (0-6); UROBILINOGEN, URINE AUTO 2.0 mg/dL (0.0-2.0); WBC, URINE AUTO 1 /HPF (0-3)
== END ==
LOC: M LAB REF 14:37
PROVIDERS: ATTEND Internal Medicine Medical Oncology
DX: C78.01 Secondary malignant neoplasm of right lung (principal)

== ENCOUNTER → 2025-03-21 | Outpatient (CLI) | payer MEDICARE, OTHER | LOC: M WHC 14:38 | PROVIDERS: ATTEND Internal Medicine | DX: Z12.31 Encounter for screening mammogram for malignant neoplasm of breast (principal); R92.333 Mammographic heterogeneous density, bilateral breasts; Z95.828 Presence of other vascular implants and grafts; R92.8 Other abnormal and inconclusive findings on diagnostic imaging of breast ==

== ENCOUNTER → 2025-04-27 | Outpatient (REF) | payer MEDICARE, OTHER ==
[2025-04-27 13:49] LABS: BASO # 0.1 10^3/uL (0.0-0.2); BASO % 0.7 % (0.0-1.0); EOS # 0.2 10^3/uL (0.0-0.5); EOS % 2.3 % (0.0-3.0); LYMPH # 1.6 10^3/uL (1.5-5.0); LYMPH % 20.7 % (24.0-44.0); MONO # 0.5 10^3/uL (0.0-0.8); MONO % 6.0 % (2.0-8.0); NEUTROPHILS # 5.3 10^3/uL (1.5-8.5); NEUTROPHILS % 70.0 % (36.0-66.0); PLATELET COUNT, AUTOMATED 160 10^3/uL (150-450)
[2025-04-27 14:03] LABS: APPEARANCE, URINE CLEAR (CLEAR); BACTERIA, URINE AUTO 1+ (NEGATIVE); BILIRUBIN, URINE AUTO NEGATIVE (NEGATIVE); BLOOD, URINE BLOOD NEGATIVE (NEGATIVE); GLUCOSE, URINE (UA) AUTO NEGATIVE (NEGATIVE); KETONE, URINE AUTO NEGATIVE (NEGATIVE); LEUKOCYTE ESTERASE, URINE AUTO NEGATIVE (NEGATIVE); MUCUS, URINE SMALL (NEGATIVE); NITRITE, URINE AUTO NEGATIVE (NEGATIVE); PROTEIN, URINE AUTO NEGATIVE (NEGATIVE); RBC, URINE AUTO 0 /HPF (0-3); SPECIFIC GRAVITY URINE AUTO 1.002 (1.002-1.035); SQUAMOUS EPITHELIAL CELL UR AU 1 /HPF (0-6); UROBILINOGEN, URINE AUTO 0.2 mg/dL (0.0-2.0); WBC, URINE AUTO 0 /HPF (0-3)
[2025-04-27 14:30] LABS: ALT/SGPT 20 U/L (7.0-40); AST/SGOT 21 U/L (<34); CALCIUM LEVEL 9.0 MG/DL (8.3-10.6); CARBON DIOXIDE LEVEL 27 MMOL/L (20-31); CHLORIDE LEVEL 110 MMOL/L (98-107); CHOLESTEROL LEVEL 180 MG/DL (<200); CHOLESTEROL RISK RATIO 4.67 (<5); CREATININE FOR GFR 0.59 MG/DL (0.55-1.30); CREATININE, URINE 15.0 MG/DL; GLOMERULAR FILTRATION RATE > 90.0 (>45); LDL CHOLESTEROL 114.7 MG/DL (<100); NON-HDL-C 141.5 MG/DL; POTASSIUM SERUM 3.5 MMOL/L (3.5-5.1); SODIUM LEVEL 146 MMOL/L (136-145); TRIGLYCERIDES LEVEL 134 MG/DL (<150)
[2025-04-27 14:31] LABS: MALB URINE SIEMENS < 3.0 MG/L
[2025-04-27 14:33] LABS: ESTIMATED AVERAGE GLUCOSE 108.0 MG/DL (60-110)
== END ==
LOC: M LAB REF 13:33
PROVIDERS: ATTEND Internal Medicine
DX: R63.5 Abnormal weight gain (principal)

== ENCOUNTER → 2025-05-01 | Outpatient (CLI) | payer MEDICARE, OTHER ==
[~2025-05-01] MED LIST changes: +ISOVUE-370 76% 100 ML VIAL ONE
== END ==
LOC: M PLAIMG 09:13
PROVIDERS: ATTEND Internal Medicine Medical Oncology
DX: C78.00 Secondary malignant neoplasm of unspecified lung (principal); C64.9 Malignant neoplasm of unspecified kidney, except renal pelvis
CPT/HCPCS: 71260; 74177; Q9967

== ENCOUNTER → 2025-05-10 | Outpatient (POV) | payer OTHER ==
[~2025-05-10] MED LIST changes: -ISOVUE-370 76% 100 ML VIAL ONE
== END ==
LOC: M IRPOV 13:15
PROVIDERS: ATTEND Radiology Diagnostic Radiology
DX: C64.2 Malignant neoplasm of left kidney, except renal pelvis (principal); N28.89 Other specified disorders of kidney and ureter; F17.210 Nicotine dependence, cigarettes, uncomplicated; Z80.1 Family history of malignant neoplasm of trachea, bronchus and lung; Z83.6 Family history of other diseases of the respiratory system; Z80.51 Family history of malignant neoplasm of kidney; Z79.01 Long term (current) use of anticoagulants; Z79.51 Long term (current) use of inhaled steroids; Z79.899 Other long term (current) drug therapy; Z88.8 Allergy status to other drugs, medicaments and biological substances

== ENCOUNTER → 2025-05-15 | Outpatient (CLI) | payer MEDICARE, OTHER | LOC: M RAD 11:09 | PROVIDERS: ATTEND Internal Medicine Medical Oncology | DX: C64.9 Malignant neoplasm of unspecified kidney, except renal pelvis (principal) ==